=== PATIENT | female | born 2000 | race Hispanic/Latino ===

== ENCOUNTER 2023-05-13 18:19 | Emergency (ER) | payer MEDICAID, OTHER ==
[~2023-05-13] VITALS: Ht 162.6 cm; Wt 73.0 kg
[2023-05-13 18:51] VITALS: BP 149/51
[2023-05-13] MEDS ORDERED: PREDNISONE 20 MG TABLET PO SCH (19:00)
[2023-05-13] MEDS ORDERED: FAMOTIDINE 20MG TAB PO SCH (19:00)
[2023-05-13] MEDS ORDERED: CEFD300C3 PO (19:07)
[2023-05-13] MEDS ORDERED: PRED20TA3 PO (19:07)
[2023-05-13] MEDS ORDERED: MUPI22OI2 TP (19:07)
[2023-05-13] MEDS ORDERED: FAMO20TA8 PO (19:07)
[2023-05-13] MEDS ORDERED: DIPHENHYDRAMINE HCL 25 MG CAPSULE PO SCH (19:08)
[2023-05-13] MEDS ORDERED: FAMOTIDINE 20MG TAB ONE (19:09)
[2023-05-13] MEDS ORDERED: PREDNISONE 20 MG TABLET ONE (19:09)
[2023-05-13] MEDS ORDERED: DIPHENHYDRAMINE HCL 25 MG CAPSULE ONE (19:09)
== END 2023-05-13 19:24 | disposition home or self-care (01) ==
LOC: EDH 18:19
DX: R21 Rash and other nonspecific skin eruption (principal); B89 Unspecified parasitic disease; Z90.89 Acquired absence of other organs
CPT/HCPCS: 99284; Q0163